=== PATIENT | male | born 1955 | race Caucasian/White ===

== ENCOUNTER → 2017-07-10 13:29 | Inpatient (IN) | payer BC ==
[2017-07-09] VITALS (9 sets, daily range): BP systolic 101–131; BP diastolic 56–77; PULSE 73–83; TEMP 97.8–98.3
[2017-07-09 06:47] LABS: BASO % 0.2 % (0.0-2.0); EOS % 0.5 % (0-4.0); GRAN # 6.8 (1.4-6.5); GRAN % 80.9 % (42.2-75.2); HEMATOCRIT 41.6 % (42.0-52.0); HEMOGLOBIN 13.7 g/dl (13.5-18.0); LYMPH # 0.8 (1.2-3.4); LYMPH % 9.3 % (20.0-51.0); MEAN CELL VOLUME 99 fl (80.0-100.0); MEAN CORPUSCULAR HEMOGLOBIN 33 pg (27.0-31.0); MEAN CORPUSCULAR HGB CONC 33 g/dl (33.0-37.0); MEAN PLATELET VOLUME 11.1 fl (7.4-10.4); MONO # 0.7 (0.1-0.6); MONO % 8.7 % (1.7-9.3); PLATELET COUNT 217 K/mm3 (130-400); RED BLOOD COUNT 4.21 M/mm3 (4.20-5.60); WHITE BLOOD COUNT 8.4 K/mm3 (4.8-10.8)
[2017-07-09 07:04] LABS: ADJUSTED CALCIUM 9.4 mg/dL (8.4-10.2); ALBUMIN 4.1 gm/dL (3.5-5.0); CALCIUM 9.5 mg/dL (8.4-10.2); CREATININE, serum 0.91 mg/dL (0.66-1.25); POTASSIUM 4.3 mmol/L (3.4-5.0); TOTAL PROTEIN 7.7 gm/dL (6.4-8.2)
[~2017-07-10] VITALS: Ht 182.9 cm; Wt 129.4 kg
[2017-07-10 02:39] VITALS: BP 128/72; PULSE 83; TEMP 98
[2017-07-10 06:02] VITALS: BP 123/73; PULSE 73; TEMP 98.1
[2017-07-10 11:08] VITALS: BP 136/68; PULSE 72; TEMP 98.2
[~2017-07-10 13:29] MED LIST: ASPIRIN 81M81 MG/TA2 PO; CIPRO 500MG TA500 MG PO; COLACE 100100 MG/CAP PO; EPA FISH OIL1 SGL PO; NORCO 325 MG-51 TAB PO; PERCOCET 325 MG1 TA2 PO; PRILOTC PO; PYRIDIUM 100MG100 MG PO; SENOKOT S 50 MG1 TAB PO
== END | disposition home or self-care (01) | DRG 440 ==
LOC: SURG 06-30 12:30 → MEDICAL 07-09 12:30 → SURG 13:29
PROVIDERS: Internal Medicine Gastroenterology; Surgery
PROC: 0FC98ZZ Extirpation of Matter from Common Bile Duct, Via Natural or Artificial Opening Endoscopic (ICD-10-PCS; principal; 2017-07-09 12:00)
DX: K85.10 Biliary acute pancreatitis without necrosis or infection (principal); I71.4 Abdominal aortic aneurysm, without rupture; K21.9 Gastro-esophageal reflux disease without esophagitis; I10 Essential (primary) hypertension; F17.210 Nicotine dependence, cigarettes, uncomplicated; Z85.46 Personal history of malignant neoplasm of prostate
CPT/HCPCS: C1769; J0696; J1200; J1956; J2704; J2765; J7030; Q9967

== ENCOUNTER 2017-07-14 09:28 | Day surgery (SDC) | payer BC ==
[~2017-07-14] VITALS: Ht 182.9 cm; Wt 127.4 kg
[2017-07-14] VITALS (8 sets, daily range): BP systolic 103–145; BP diastolic 54–87; PULSE 57–83; TEMP 96.9–97.4
[2017-07-14] MEDS ORDERED: NORCO 325 MG-51 TAB PO (15:34)
== END 2017-07-14 17:24 | disposition home or self-care (01) ==
LOC: SDCO 09:28
DX: K85.10 Biliary acute pancreatitis without necrosis or infection (principal); K80.12 Calculus of gallbladder with acute and chronic cholecystitis without obstruction; K21.9 Gastro-esophageal reflux disease without esophagitis; D69.6 Thrombocytopenia, unspecified; I10 Essential (primary) hypertension; I25.10 Atherosclerotic heart disease of native coronary artery without angina pectoris; E78.5 Hyperlipidemia, unspecified; G47.33 Obstructive sleep apnea (adult) (pediatric); F17.290 Nicotine dependence, other tobacco product, uncomplicated; E66.9 Obesity, unspecified; Z68.37 Body mass index [BMI] 37.0-37.9, adult; Z90.79 Acquired absence of other genital organ(s); Z85.46 Personal history of malignant neoplasm of prostate
CPT/HCPCS: J1100; J1170; J1885; J2270; J2405; J2704; J7120; Q9967

== ENCOUNTER 2019-04-08 08:57 | Inpatient (IN) | payer BC ==
[2019-04-08] VITALS (10 sets, daily range): BP systolic 103–151; BP diastolic 61–83; PULSE 52–93; TEMP 97.9–98.4
[~2019-04-08] VITALS: Ht 182.9 cm; Wt 127.0 kg
[2019-04-08 10:29] LABS: COLLECTION METHOD CLEAN CATCH
--- NOTE | 2019-04-08 10:30 | NUR ---
supervisor grinding is starting patients IV. Patient was able to void once, he has several large clots come out. Sent a UA to the lab. Patient stated his pain is much better after passing the clots. No complaints of nausea. Working on patients admission assessment. No other changes at this time. Call light within reach. Oriented patient to room.
[2019-04-08 10:34] LABS: BASO # 0.1 (0.0-0.2); BASO % 0.7 % (0.0-2.0); EOS # 0.2 (0.0-0.7); GRAN # 5.8 (1.4-6.5); GRAN % 67.6 % (42.2-75.2); HEMATOCRIT 41.9 % (42.0-52.0); HEMOGLOBIN 13.7 g/dl (13.5-18.0); LYMPH # 1.7 (1.2-3.4); MEAN CELL VOLUME 97 fl (80.0-100.0); MEAN CORPUSCULAR HEMOGLOBIN 32 pg (27.0-31.0); MEAN CORPUSCULAR HGB CONC 33 g/dl (33.0-37.0); MONO # 0.8 (0.1-0.6); MONO % 9.3 % (1.7-9.3); PLATELET COUNT 220 K/mm3 (130-400); REDCELL DISTRIBUTION WIDTH-CV 14.2 % (11.5-14.5)
[2019-04-08 10:38] LABS: INR 0.9 (0.8-3.0); PH 6 (5-8); PROTHROMBIN TIME 10.5 SECONDS (9.7-12.8); SQUAMOUS EPITHELIAL None Seen /hpf; URINE APPEARANCE Turbid; URINE BACTERIA None Seen /hpf; URINE BILIRUBIN Negative (NEGATIVE); URINE BLOOD 3+ (NEGATIVE); URINE COLOR Amber; URINE GLUCOSE 1+ (NEGATIVE); URINE KETONE Trace (NEGATIVE); URINE LEUKOCYTE ESTERASE Negative (NEGATIVE); URINE NITRATE Positive (NEGATIVE); URINE PROTEIN(semi-quant) 2+ (NEGATIVE); URINE RBC >50 /hpf; URINE UROBILINOGEN Negative (NEGATIVE)
[2019-04-08 10:52] LABS: ALBUMIN 4.1 gm/dL (3.5-5.0); BILIRUBIN,TOTAL 0.2 mg/dL (0.0-1.0); CREATININE, serum 1.08 (0.66-1.25); POTASSIUM 4.3 mmol/L (3.4-5.0); TOTAL PROTEIN 7.7 gm/dL (6.4-8.2)
--- NOTE | 2019-04-08 18:30 | NUR ---
Patient has been doin well since surgery. Denies pain. Urine is yellow and a little hazy. No complaints of nausea. IVF's infusing. Encouraged patient to drink some water. He has been up once since getting back from surgery. No other changes at this time. Call light within reach.
[2019-04-09] VITALS: BP 96/49; PULSE 89; TEMP 97.7
[2019-04-09 04:00] VITALS: BP 111/48; PULSE 76; TEMP 98.5
--- NOTE | 2019-04-09 06:19 | NUR ---
PT RESTED FAIRLY WELL EXCEPT WHEN HIS I.V. WOULD OCCLUDE. NO c/o PAIN. SCHEDULED TORADOL ADMIN.
[2019-04-09 07:42] VITALS: BP 102/49; PULSE 87; TEMP 97.6
--- NOTE | 2019-04-09 08:00 | NUR ---
PATIENT SITTING UP IN THE CHAIR THIS MORNING. PATIENT IS A&O. VSS. BOWEL SOUNDS ACTIVE ALL FOUR QUADRANTS. PATIENT TOLERATING DIET WITHOUT ANY COMPLAINTS OF N/V. POSITIVE PEDAL PULSES EQUAL BILATERALLY. RIGHT WRIST TO INT. CALL LIGHT WITHIN REACH. PATIENT DENIES ANY NEEDS AT THIS TIME.
--- NOTE | 2019-04-09 11:10 | NUR ---
PATIENT'S RIGHT WRIST INT DISCONTINUED PER PENDING DISCHARGE. TIP INTACT. PATIENT TOLERATED WELL.
--- NOTE | 2019-04-09 11:59 | NUR ---
Patient lives at home with his (Lizbet Mccall) in [place], [place] and he plans to return home upon recovery. Patient is independent with daily living activities and works as a [employer]. Patient has no durable medical equipment needs at this time, his primary care physician is Dr. Italo Covington, his pharmacy is [facility], and he does have advance directives of healthcare completed with his DPOA being his , Lizbet Mccall (phone number [phone]). No further needs at this time and social worker health services will follow as needed.
--- NOTE | 2019-04-09 12:25 | NUR ---
PATIENT VOIDING WITHOUT ANY DIFFICULTIES. DISCHARGE INSTRUCTIONS REVIEWED WITH PATIENT AND . ALL QUESTIONS ANSWERED. PATIENT PERSONAL BELONGINGS GATHERED. PATIENT AMBULATED TO PERSONAL VEHICLE WITH SURGICAL STAFF. PATIENT DISCHARGED.
== END 2019-04-09 12:25 | disposition home or self-care (01) | DRG 669 ==
LOC: SURG 08:57
PROVIDERS: ADMIT Urology
PROC: 0TCB8ZZ Extirpation of Matter from Bladder, Via Natural or Artificial Opening Endoscopic (ICD-10-PCS; principal; 2019-04-08 13:00)
PROC: 0TBB8ZZ Excision of Bladder, Via Natural or Artificial Opening Endoscopic (ICD-10-PCS; 2019-04-08 13:00)
DX: R31.0 Gross hematuria (principal); K57.92 Diverticulitis of intestine, part unspecified, without perforation or abscess without bleeding; D49.4 Neoplasm of unspecified behavior of bladder; N13.8 Other obstructive and reflux uropathy; I10 Essential (primary) hypertension; K44.9 Diaphragmatic hernia without obstruction or gangrene; K21.9 Gastro-esophageal reflux disease without esophagitis; G47.33 Obstructive sleep apnea (adult) (pediatric); Z88.1 Allergy status to other antibiotic agents; Z93.6 Other artificial openings of urinary tract status
CPT/HCPCS: J1100; J1885; J1956; J2405; J2704; J3010

== ENCOUNTER 2019-05-16 05:18 | Day surgery (SDC) | payer BC ==
[~2019-05-16] VITALS: Ht 182.9 cm; Wt 124.2 kg
[2019-05-16] MEDS ORDERED: ZOCOR 10MG10 MG PO (05:56)
[2019-05-16] MEDS ORDERED: URIBEL1 CAP PO (05:57)
[2019-05-16 05:59] VITALS: BP 131/82; PULSE 82; TEMP 98.2
--- NOTE | 2019-05-16 08:40 | NUR ---
Pt returned to [facility] via cart with RN drinking ice water. Upon arrival, pt requested immediately to void. Pt successfully voided with some blood in urine and reassured pt that some blood in urine is normal at this time. Pt requested to see a menu and ordered breakfast. Pt denies pain at this time and VSS and within normal limits. and daughter in law at bedside and call light within reach.
[2019-05-16 08:45] VITALS: BP 115/61; PULSE 76; TEMP 97.1
[2019-05-16 09:00] VITALS: BP 112/65; PULSE 71
--- NOTE | 2019-05-16 09:00 | NUR ---
Pt up to restroom again with successful void. VSS and within normal limits. Pt ate muffin without nausea and vomiting and continues drinking water. Pt has no concerns or questions at this time.
[2019-05-16 09:15] VITALS: BP 113/71; PULSE 72
--- NOTE | 2019-05-16 09:25 | NUR ---
VSS and within normal limits. Pt up to bathroom to void without problems. Denies N/V and only reports mild pain.
[2019-05-16 09:30] VITALS: BP 108/72; PULSE 64
--- NOTE | 2019-05-16 09:39 | NUR ---
Pt up to bathroom again with successful void. VSS and within normal limits. Pt states that he is feeling "better and more awake"
--- NOTE | 2019-05-16 09:46 | NUR ---
Pt met discharge criteria, and he states "I'm ready to go home." Reviewed discharge information with patient and , and they had no further concerns or questions. VSS and within normal limits.
--- NOTE | 2019-05-16 09:49 | NUR ---
Pt escorted to personal car via wheelchair with tech. Discharge to home at 0949.
== END 2019-05-16 09:49 | disposition home or self-care (01) ==
LOC: SDCO 05:18
DX: C67.8 Malignant neoplasm of overlapping sites of bladder (principal); N30.40 Irradiation cystitis without hematuria; K76.0 Fatty (change of) liver, not elsewhere classified; K21.9 Gastro-esophageal reflux disease without esophagitis; E78.5 Hyperlipidemia, unspecified; G47.33 Obstructive sleep apnea (adult) (pediatric); D47.3 Essential (hemorrhagic) thrombocythemia; F17.210 Nicotine dependence, cigarettes, uncomplicated; N39.3 Stress incontinence (female) (male); I25.10 Atherosclerotic heart disease of native coronary artery without angina pectoris; I10 Essential (primary) hypertension; Z85.46 Personal history of malignant neoplasm of prostate; Z90.49 Acquired absence of other specified parts of digestive tract; Z79.82 Long term (current) use of aspirin; Z80.8 Family history of malignant neoplasm of other organs or systems; Z82.49 Family history of ischemic heart disease and other diseases of the circulatory system; Z80.1 Family history of malignant neoplasm of trachea, bronchus and lung; Z88.8 Allergy status to other drugs, medicaments and biological substances
CPT/HCPCS: J1100; J2405; J2704; J3010; J7120